=== PATIENT | male | born 1970 | race Caucasian/White ===

== ENCOUNTER 2021-03-12 00:56 | Emergency (ER) | payer OTHER ==
[~2021-03-12] VITALS: Ht 188 cm; Wt 117.9 kg
--- NOTE | 2021-03-12 01:15 | NUR ---
MD Scott in room to do MSE.
--- NOTE | 2021-03-12 01:15 | NUR ---
Patient sating at 91% on room air, MD Scott made aware. Orders for nasal cannula given. Titrated to 5 LPM increased to 98%.
[2021-03-12] MEDS ORDERED: vicodin (01:20)
[2021-03-12] MEDS ORDERED: SILODOSIN (01:20)
[2021-03-12] MEDS ORDERED: baclofen (01:20)
--- NOTE | 2021-03-12 01:20 | NUR ---
Noted patient is having SBP within 90s bilaterally read from both arms. MD Scott notified. Verbal orders for 1L normal saline bolus given.
[2021-03-12] MEDS ORDERED: IV NORMAL SALINE 1000 ML BAG IV ONE ×2 (01:30→02:30)
--- NOTE | 2021-03-12 01:30 | NUR ---
public address technician in room with patient taking x-ray.
[2021-03-12 01:50] LABS: HEMATOCRIT 41.8 % (36.7-47.1); MEAN CORPUSCULAR HEMOGLOBIN 31.4 uug (23.8-33.4); MEAN CORPUSCULAR VOLUME 91.3 fL (73.0-96.2); PLATELET COUNT (AUTO) 278 K/uL (152-348)
[2021-03-12 02:01] LABS: BILIRUBIN,DIRECT 0.1 mg/dL (0.0-0.2); BILIRUBIN,TOTAL 0.5 mg/dL (0.2-1.0); CREATININE 1.4 mg/dL (0.6-1.3); POTASSIUM 3.1 mmol/L (3.5-5.1); TOTAL PROTEIN, SERUM 6.7 g/dL (6.4-8.2)
[2021-03-12] MEDS ORDERED: POTASSIUM BICARBONATE/CIT AC 25 MEQ TABLET.EFF PO ONE (02:15)
[2021-03-12] MEDS ORDERED: POTASSIUM BICARBONATE/CIT AC 25 MEQ TABLET.EFF ONE (02:19)
--- NOTE | 2021-03-12 02:40 | NUR ---
Patient resting on bed, with his at bedside.
--- NOTE | 2021-03-12 03:30 | NUR ---
Patient is resting comfortably in bed with eyes closed, with at bedside. 100% SpO2 on room air, no acute distress noted.
--- NOTE | 2021-03-12 04:35 | NUR ---
Report troponin blood draw done by me.
--- NOTE | 2021-03-12 05:18 | NUR ---
IV removed. Catheter intact and site benign. Pressure and 4x4 gauze applied to site. No bleeding noted.
--- NOTE | 2021-03-12 05:25 | NUR ---
Patient discharged to home in stable condition with taking patient patient home. Written and verbal after care instructions given. Patient verbalizes understanding of instructions. Stressed follow up or return to ER for worsening s/s.
[2021-03-12 05:27] VITALS: BP 128/85
== END 2021-03-12 05:28 | disposition home or self-care (01) ==
LOC: ER 01:02
DX: E86.1 Hypovolemia (principal); R55 Syncope and collapse; Z82.49 Family history of ischemic heart disease and other diseases of the circulatory system; Z20.822 Contact with and (suspected) exposure to COVID-19
CPT/HCPCS: 36415; 70030-TC; 71045; 83735; 85025; 93005; A4663; J7030